=== PATIENT | male | born 1945 | race Caucasian/White ===

== ENCOUNTER 2017-01-06 13:49 | Outpatient (CLI) | payer MEDICARE, MEDICAID ==
[2017-01-06 15:03] LABS: #Basophils 0.1 thou/uL (0.0-0.2); #Eosinphils 0.1 thou/uL (0.0-0.7); #Lymphocytes 1.3 thou/uL (1.20-3.40); #Monocytes 0.6 thou/uL (0.11-0.59); #Neutrophils 5.5 thou/uL (1.40-6.50); %Basophils 1.2 % (0.0-1.0); %Lymphocytes 17.4 % (21.0-51.0); %Monocytes 7.8 % (0.0-10.0); %Neutrophils 72.5 % (42.0-75.0); Hemoglobin 10.9 g/dL (14.0-18.0); Mean Corpuscular HGB CONC 30.9 g/dL (32.0-36.0); Mean Corpuscular Hemoglobin 28.4 pg (27.0-31.0); Mean Corpuscular Volume 91.7 fl (80.0-94.0); Mean Platelet Volume 7.6 fL (7.4-10.4); Platelet Count 309 thou/uL (130-400); RBC Distribution Width 18.1 % (11.5-14.5); Red Blood Cell (RBC) Count 3.82 mill/uL (4.70-6.10); White Blood Cell (WBC) Count 7.5 thou/uL (4.8-10.8)
[2017-01-06 15:17] LABS: ALT (SGPT) 12 U/L (0-55); AST (SGOT) 17 U/L (5-34); Albumin 3.8 g/dL (3.4-4.8); Alkaline Phosphatase 89 U/L (40-150); Anion Gap 12 mmol/L (10-20); BUN (Urea Nitrogen) 20 mg/dL (8.4-25.7); Bilirubin, Total 0.4 mg/dL (0.2-1.2); Calc. Creatinine Clearance 0 mL/min (70-130); Calcium 8.5 mg/dL (7.8-10.44); Carbon Dioxide 25 mmol/L (23-31); Cardiac Risk 2.6 (Less than 4.5); Chloride 107 mmol/L (98-107); Cholesterol 159 mg/dL (< 200 Desired); Estimated GFR-MDRD 68; Globulin 2.7 g/dL (2.4-3.5); Glucose 100 mg/dL (80-115); HDL Cholesterol 62 mg/dL (>60 Neg Risk); LDL Cholesterol, Calculated 79 mg/dL; Potassium 4.6 mmol/L (3.5-5.1); Protein, Total 6.5 g/dL (5.8-8.1); Sodium 139 mmol/L (136-145); Triglycerides 92 mg/dL (Less than 150)
[2017-01-06 15:30] LABS: PSA-Asymptomatic (SCREENING) 0.64 ng/mL (0-4.0)
[2017-01-06 18:58] LABS: Ferritin 21.71 ng/mL (22-322)
== END 2017-01-06 13:50 | disposition home or self-care (01) ==
LOC: HPCALD 13:49
PROVIDERS: ATTEND Family Medicine
DX: Z12.5 Encounter for screening for malignant neoplasm of prostate (principal); E78.5 Hyperlipidemia, unspecified; D50.9 Iron deficiency anemia, unspecified; I10 Essential (primary) hypertension
CPT/HCPCS: 36415; 80053; 80061; 82728; 85025; G0103

== ENCOUNTER 2017-03-18 14:24 | Outpatient (CLI) | payer MEDICARE, MEDICAID | END 2017-03-18 14:25 | disposition home or self-care (01) | LOC: BURLAB 14:24 | PROVIDERS: ATTEND Family Medicine | DX: R19.7 Diarrhea, unspecified (principal) | CPT/HCPCS: 87015; 87045; 87046; 87177; 87324; 87449; 87899 ==

== ENCOUNTER 2017-04-15 22:48 | Emergency (ER) | payer MEDICARE, MEDICAID ==
[2017-04-15] MEDS ORDERED: Lidocaine 1% w/Epinephrine 1:100K 30 ML VIAL ONE (22:54)
[2017-04-15] MEDS ORDERED: Adacel (T-DAP) 0.5 ML VIAL ONE (22:54)
[2017-04-15] MEDS ORDERED: Acetaminophen 500 MG TAB ONE (23:10)
[2017-04-16] MEDS ORDERED: HYDROcodone/Acetaminophen 5/325 mg Tablet ONE (00:46)
[2017-04-16] MEDS ORDERED: Cephalexin 250 MG CAP ONE (00:46)
--- NOTE | 2017-04-16 07:50 | RAD ---
LEFT FOREARM 2 VIEWS: DATE: 04/15/17. FINDINGS: The study is suspicious for an impacted fracture of the distal radius and possibly the distal ulna, age indeterminate. There is a bony density in the soft tissues of the distal anterior forearm that may be new or old. The carpals are not demonstrated optimally, but no gross fractures were seen the re. The proximal forearm appeared intact. IMPRESSION: Evidence of trauma to the distal radius and ulna, but the age is indeterminate. Consider followup s tudies if this correlates with the current site of pain. POS: HOME
--- NOTE | 2017-04-16 08:35 | CT ---
PRELIMINARY REPORT/[facility]/EMERGENCY AFTER HOURS PROCEDURE: EXAM: CT Maxillofacial Without Intravenous Contrast CLINICAL HISTORY: 71 years old, male; Injury or trauma; Fall; Follow-up exam; Blunt trauma (contusions or hematomas); Nose TECHNIQUE: Axial computed tomography images of the face without intravenous contrast. EXAM DATE/TIME: Exam ordered 04/15/2017 11:25 PM COMPARISON: No relevant prior studies available. FINDINGS: Bones/joints: Acute comminuted and displaced fracture of the vomer. Acute displaced nasal bone fract ures. Fracture deformity of the medial wall of right orbit with herniation of extraconal intraorbita l fat is age indeterminate. Fracture of the left zygomatic arch, age indeterminate. Soft tissues: No evidence of entrapment of the medial rectus muscle. Orbits: No rupture. No retrobulbar hematoma. Sinuses: Unremarkable. No air-fluid levels. IMPRESSION: 1. Acute comminuted and displaced fracture of the vomer. 2. Acute displaced nasal bone fractures. 3. Fracture deformity of the medial wall of right orbit with herniation of extraconal intraorbital f at is age indeterminate. 4. Fracture of the left zygomatic arch, age indeterminate. Thank you for allowing us to participate in the care of your patient. Dictated and Authenticated by: Ritchie Cordoba MD 04/16/2017 12:17 AM Central Time ([place] \T\ [place]) FINAL REPORT CT OF THE FACIAL BONES: DATE: 04/15/17. FINDINGS: Spiral CT of the face was performed for evaluation following a fall. Axial slices were acquired, th en coronal and sagittal reconstructions were done. Comminuted fractures are seen near the tip of the nasal bones. There also is some deviation of the septum towards the left. A fracture of the vomer is noted. There is a fracture of the left zygomat ic arch, age indeterminate, with minimal displacement. There is some mucosal thickening in the ethm oid air cells as well as a small rounded soft tissue elevation in the floor of the right maxillary s inus which could be a small polyp or retention cyst. There is disruption of the medial wall of the right orbit with herniation of fat through it. A fracture is presumed, but the age is indeterminate . The retroorbital areas were unremarkable. The mandible appeared intact. The upper cervical spin e was demonstrated which showed no fracture, but there were extensive degenerative changes with disk space narrowing prominent at C3-C4. IMPRESSION: 1. Nasal fractures and vomer fracture as noted. 2. Fracture of the left zygomatic arch, age indeterminate. 3. Fracture of the medial wall of the right orbit with herniation of orbital fat. Age indeterminat e. Report in agreement with preliminary reading by [facility]. POS: HOME
--- NOTE | 2017-04-16 08:37 | CT ---
PRELIMINARY REPORT/[facility]/EMERGENCY AFTER HOURS PROCEDURE: EXAM: CT Head Without Intravenous Contrast CLINICAL HISTORY: 71 years old, male; Injury or trauma; Fall TECHNIQUE: Axial computed tomography images of the head/brain without intravenous contrast. EXAM DATE/TIME: Exam ordered 04/15/2017 11:22 PM COMPARISON: No relevant prior studies available. FINDINGS: Brain: Cerebellar atrophy. Volume loss and chronic small vessel ischemic change. Biparietooccipital encephalomalacia/gliosis. No hemorrhage. Ventricles: Unremarkable. No ventriculomegaly. Bones/joints: Fractures of the nasal bones and vomer, age-indeterminate, but possibly acute. Soft tissues: Unremarkable. Sinuses: Unremarkable as visualized. No acute sinusitis. Mastoid air cells: Unremarkable as visualized. No mastoid effusion. IMPRESSION: 1. No intracranial hemorrhage. 2. Fractures of the nasal bones and vomer, age-indeterminate, but possibly acute. Thank you for allowing us to participate in the care of your patient. Dictated and Authenticated by: Ritchie Cordoba MD 04/16/2017 12:04 AM Central Time ([place] \T\ [place]) FINAL REPORT CT OF THE BRAIN WITHOUT CONTRAST: DATE: 04/15/17. FINDINGS: Spiral CT of the brain was done following trauma. Comparison is made with a prior study of 09/17/16 . There is extensive deep white matter hypolucency, more so on the right than the left. Findings sugg est chronic ischemic changes. No intracranial bleeding or extraaxial hematoma was seen. There is n o sign of mass or acute stroke, though some subtle strokes would be missed against the background of chronic ischemic change. The sphenoid sinus is clear as are the mastoid air cells. While no skull fracture is seen, there does appear to be a fracture of the left zygoma and probably the nasal bone s as well. See CT of the face to follow. IMPRESSION: 1. Extensive severe ischemic changes, longstanding. 2. No acute intracranial findings. 3. Left zygomatic arch fracture. Nasal fractures. See CT of the face to follow. Report in agreement with preliminary reading by [facility]. POS: HOME
== END 2017-04-16 00:55 | disposition home or self-care (01) ==
LOC: BURERS 22:48
DX: S02.2XXA Fracture of nasal bones, initial encounter for closed fracture (principal); S02.40FA Zygomatic fracture, left side, initial encounter for closed fracture; S02.81XA Fracture of other specified skull and facial bones, right side, initial encounter for closed fracture; W18.30XA Fall on same level, unspecified, initial encounter
CPT/HCPCS: 12011; 12051; 70450; 70486; 90471; 90715; J2001

== ENCOUNTER 2018-05-15 16:26 | Emergency (ER) | payer MEDICARE, MEDICAID ==
[2018-05-15] MEDS ORDERED: Acetaminophen 500 MG TAB ONE (16:49)
[2018-05-15] MEDS ORDERED: Bacitracin Zinc 1 Packet ONE (17:43)
--- NOTE | 2018-05-15 19:20 | CT ---
CT BRAIN WITHOUT CONTRAST: 05/15/2018 COMPARISON: 04/15/2017 and 09/17/2016 FINDINGS: Areas of prior strokes are seen in the brain, particularly in the right parietal region. There are o ther scattered areas of low density, consistent with chronic ischemic change. The ventricles are nor mal in size for age and show no shift. No intracranial bleeding or extraaxial hematoma is seen. There is some soft tissue swelling over the middle of the forehead, but the underlying bone appears i ntact. Marked deviation of the nasal septum toward the right is longstanding. This was present on t he prior exam. A small line seen in the left zygomatic arch has been present, back to 2016, so it is not acute. A small retention cyst is suggested in the floor of the right maxillary sinus. The sphe noid sinus and mastoid air cells are clear. IMPRESSION: 1. Atrophy and chronic ischemic changes with evidence of old strokes, as noted above. Appearance li ttle different than the prior examination. 2. Soft tissue swelling over the forehead without any acute traumatic changes intracranially. POS: HOME
== END 2018-05-15 17:34 | disposition home or self-care (01) ==
LOC: BURERS 16:26
DX: S01.81XA Laceration without foreign body of other part of head, initial encounter (principal); K21.9 Gastro-esophageal reflux disease without esophagitis; I10 Essential (primary) hypertension; J44.9 Chronic obstructive pulmonary disease, unspecified; D64.9 Anemia, unspecified; E78.5 Hyperlipidemia, unspecified; F17.210 Nicotine dependence, cigarettes, uncomplicated; Z79.899 Other long term (current) drug therapy; Z79.891 Long term (current) use of opiate analgesic; W19.XXXA Unspecified fall, initial encounter
CPT/HCPCS: 12013; 70450

== ENCOUNTER 2018-11-25 07:28 | Emergency (ER) | payer MEDICARE, MEDICAID ==
[2018-11-25 08:05] LABS: Clarity Slightly Cloudy (Clear); Glucose, Urine (Dipstick) Negative (Negative); Leukocyte Negative (Negative); Nitrite Negative (Negative); Protein, Urine (Dipstick) 100 mg/dL (Neg-Trace)
[2018-11-25 08:06] LABS: Bilirubin Small (Negative); Blood, Urine Trace (Negative)
[2018-11-25 08:10] LABS: Bacteria/HPF 2+ HPF (None Seen)
[2018-11-25 08:11] LABS: Squamous Epithelial 0-3 HPF (0-3)
[2018-11-25] MEDS ORDERED: Dicyclomine 20 MG TAB ONE (08:16)
[2018-11-25] MEDS ORDERED: Phenazopyridine HCl 97.5 MG TABLET ONE (08:27)
== END 2018-11-25 08:49 | disposition home or self-care (01) ==
LOC: BURERS 07:28
DX: N39.0 Urinary tract infection, site not specified (principal); S61.402A Unspecified open wound of left hand, initial encounter; K21.9 Gastro-esophageal reflux disease without esophagitis; E78.5 Hyperlipidemia, unspecified; I10 Essential (primary) hypertension; J44.9 Chronic obstructive pulmonary disease, unspecified; F17.210 Nicotine dependence, cigarettes, uncomplicated; X58.XXXA Exposure to other specified factors, initial encounter
CPT/HCPCS: 51702; 81003; 81015; 87086

== ENCOUNTER 2021-10-08 16:06 | Emergency (ER) | payer MEDICARE, OTHER | END 2021-10-08 18:51 | disposition home or self-care (01) | LOC: BURERS 16:06 | DX: J44.9 Chronic obstructive pulmonary disease, unspecified (principal); I25.2 Old myocardial infarction; E78.5 Hyperlipidemia, unspecified; I10 Essential (primary) hypertension; K21.9 Gastro-esophageal reflux disease without esophagitis; I25.10 Atherosclerotic heart disease of native coronary artery without angina pectoris; F17.210 Nicotine dependence, cigarettes, uncomplicated | CPT/HCPCS: 71045 ==

== ENCOUNTER 2023-05-07 12:43 | Emergency (ER) | payer MEDICARE, MEDICAID ==
[2023-05-07 13:22] LABS: #Basophils 0.1 thou/uL (0.0-0.2); #Eosinphils 0.1 thou/uL (0.0-0.7); #Lymphocytes 0.9 thou/uL (1.20-3.40); #Monocytes 0.6 thou/uL (0.11-0.59); #Neutrophils 6.9 thou/uL (1.40-6.50); %Basophils 0.6 % (0.0-1.0); %Eosinophils 0.7 % (0.0-10.0); %Lymphocytes 10.4 % (21.0-51.0); %Monocytes 7.3 % (0.0-10.0); %Neutrophils 81.1 % (42.0-75.0); Hemoglobin 10.5 g/dL (14.0-18.0); Mean Corpuscular HGB CONC 29.9 g/dL (32.0-36.0); Mean Corpuscular Hemoglobin 27.9 pg (27.0-31.0); Mean Corpuscular Volume 93.3 fl (78.0-98.0); Mean Platelet Volume 7.5 fL (7.4-10.4); Platelet Count 277 10x3/uL (130-400); Red Blood Cell (RBC) Count 3.75 mill/uL (4.70-6.10); White Blood Cell (WBC) Count 8.5 10x3/uL (4.8-10.8)
[2023-05-07 13:40] LABS: ALT (SGPT) 16 U/L (8-55); AST (SGOT) 14 U/L (5-34); Albumin 3.6 g/dL (3.4-4.8); Alkaline Phosphatase 78 U/L (40-110); Anion Gap 17 mmol/L (10-20); BUN (Urea Nitrogen) 16 mg/dL (8.4-25.7); Bilirubin, Total 0.5 mg/dL (0.2-1.2); Calc. Creatinine Clearance 0 mL/min (70-130); Calcium 8.3 mg/dL (7.8-10.44); Carbon Dioxide 21 mmol/L (23-31); Chloride 106 mmol/L (98-107); Estimated GFR 63; Globulin 3.1 g/dL (2.4-3.5); Glucose 119 mg/dL (83-110); Protein, Total 6.7 g/dL (5.8-8.1); Sodium 140 mmol/L (136-145); Troponin I 0.016 ng/mL (< 0.028)
[2023-05-07 13:52] LABS: Bilirubin Small (Negative); Blood, Urine Negative (Negative); Clarity Clear (Clear); Glucose, Urine (Dipstick) Negative (Negative); Ketone, Urine Trace mg/dL (Negative); Leukocyte Negative (Negative); Nitrite Negative (Negative); Protein, Urine (Dipstick) Trace mg/dL (Neg-Trace); Specific Gravity, Urine 1.015 (1.005-1.030)
[2023-05-07 14:01] LABS: Bacteria/HPF Rare-Few HPF (None Seen); CAUTI Indications for Culture Dysuria,urgency,freq; RBC/HPF 0-3 HPF (0-3); Squamous Epithelial None Seen HPF (0-3); WBC/HPF 0-3 HPF (0-3)
[2023-05-07 14:02] LABS: Urine Culture Reflex No No
[2023-05-07 14:28] LABS: SARS-CoV-2 NAA Rapid Test Not Detected (NotDetected)
== END 2023-05-07 15:06 ==
LOC: BURERS 12:43
DX: T67.5XXA Heat exhaustion, unspecified, initial encounter (principal); J44.9 Chronic obstructive pulmonary disease, unspecified; K21.9 Gastro-esophageal reflux disease without esophagitis; E78.5 Hyperlipidemia, unspecified; I11.0 Hypertensive heart disease with heart failure; I50.9 Heart failure, unspecified; I25.10 Atherosclerotic heart disease of native coronary artery without angina pectoris; F17.200 Nicotine dependence, unspecified, uncomplicated; Z20.822 Contact with and (suspected) exposure to COVID-19
CPT/HCPCS: 36415; 51701; 71045; 80053; 81001; 83605; 84484; 85025; 87040; 87086; 93005; 96360

== ENCOUNTER 2023-06-26 19:20 | Emergency (ER) | payer MEDICARE, OTHER, MEDICAID | END 2023-06-26 20:28 | disposition home or self-care (01) | LOC: BURERS 19:20 | DX: S00.93XA Contusion of unspecified part of head, initial encounter (principal); J44.9 Chronic obstructive pulmonary disease, unspecified; I11.0 Hypertensive heart disease with heart failure; I50.9 Heart failure, unspecified; W19.XXXA Unspecified fall, initial encounter | CPT/HCPCS: 70450; 72125 ==

== ENCOUNTER 2023-08-03 15:26 | Emergency (ER) | payer MEDICAID, MEDICARE, OTHER | END 2023-08-03 15:29 | disposition E | LOC: BURERS 15:26 | DX: I46.9 Cardiac arrest, cause unspecified (principal); I11.0 Hypertensive heart disease with heart failure; I50.9 Heart failure, unspecified; J44.9 Chronic obstructive pulmonary disease, unspecified | CPT/HCPCS: 99285 ==